=== PATIENT | male | born 1985 | race Caucasian/White ===

== ENCOUNTER 2021-08-12 13:58 | Emergency (ER) | payer SELFPAY ==
[2021-08-12 14:06] VITALS: BP 180/103; PULSE 78; RESP 14; TEMP 37.2; O2SAT 100; BMI 21.7
[2021-08-12 15:30] VITALS: BP 132/73; PULSE 74; TEMP 37.2; O2SAT 99
--- NOTE | 2021-08-12 15:44 | ED_ITS ---
HPI - Extremity Problem General Chief complaint: Extremity Problem,Nontraumatic Stated complaint: Cyst on knee possibly infected Time Seen by Provider: 08/12/21 15:43 Source: patient Mode of arrival: Ambulatory History of Present Illness HPI Narrative: Patient is a 35-year-old male. He is here for evaluation of what he states is a cyst that is enlarging and becoming more painful on the outside of his left knee. He states that he had a cyst on this area several years ago. He had surgery and had a removed. Had no issues until just recently when he started noticing the area swelling again. Is now becoming very tender to palpation. Potentially some subjective fevers at home but no definitive/objective fever noted. Denies any specific trauma. Related Data Home Medications Medication Instructions Recorded Confirmed No Known Home Medications 08/12/21 08/12/21 Allergies Allergy/AdvReac Type Severity Reaction Status Date / Time No Known Drug Allergies Allergy Verified 08/12/21 14:11 Review of Systems Constitutional Constitutional: Reports as per HPI and Reports system reviewed and no additional complaints, except as documented Musculoskeletal Musculoskeletal: Reports system reviewed and no additional complaints, except as documented and Reports as per HPI Integumentary/Breasts Skin/Breast: Reports system reviewed and no additional complaints, except as documented and Reports as per HPI Neurologic Neurologic: Reports system reviewed and no additional complaints, except as documented Hematologic/Lymphatic On Anticoagulants: No Patient History Medical History Patient denies medical problems Social History Smoking Status: Never smoker Smoking Status: Never smoker alcohol intake frequency: 0-2 drinks per day Substance Use Type: marijuana Exam Initial Vital Signs Initial Vital Signs: Vital Signs Temperature 98.9 F 08/12/21 14:06 Pulse Rate 78 08/12/21 14:06 Respiratory Rate 14 08/12/21 14:06 Blood Pressure 180/103 H 08/12/21 14:06 Pulse Oximetry 100 08/12/21 14:06 Resp Auscultation: clear to auscultation bilaterally Cardio Rate: regular rate Skin Other: Patient has a swelling on the lateral aspect of his left knee. Approximately 3 cm x 2 cm. It does appear to be fluid-filled. Not draining. Very slight amount of erythema surrounding the area. It is very tender to touch. Neuro General: patient alert, patient awake, patient oriented x3 and moves all extremities Extrem Other: Patient can flex and extend the left knee. Discomfort over the swelling of the left knee. Course Vital Signs Vital signs: Vital Signs - 8 hr 08/12/21 14:06 08/12/21 15:30 Temperature 98.9 F 98.9 F Pulse Rate 78 74 Respiratory Rate 14 Blood Pressure 180/103 H 132/73 Pulse Oximetry 100 99 MDM - Extremity (Nontraumatic) MDM Narrative Medical decision making narrative: Patient's issue that brought him to the emergency department today is either an abscess or a cyst. He states that he has had a cyst in the past that has been surgically removed. I informed him that unfortunately cyst can return despite the surgical intervention that he previously had. We discussed the potential that this is also a abscess. I did not perform an ultrasound because it is obviously fluid filled. Does have some surrounding erythema. Some concern about an infection however this could also b e reactionary because of the cyst. There is some crusting over the area. Had a long discussion regarding his symptoms. We discussed options to include incision and drainage and needle aspiration. Informed him that at this was an abscess this would treat the issue in that it would go away. If it was a cyst it would most likely return. Unfortunately unless we either aspirated or perform incision and drainage I cannot be 100% sure whether not it was an abscess or a cyst. We discussed the risks of performing the procedure. The risks of not performing the procedure. The potential that the infection would worsen. After this discussion the patient would like to hold on any intervention here in the ER. No radiologic studies warranted of the emergency department. With with the skin looks around the area I will not start him on antibiotics without performing a incision and drainage as this potentially is a cyst and I feel that putting him on antibiotics is not best course of action w ithout further intervention here in the ER. He was given information of follow- up with general surgery to see about having the cyst removed. He was given strict return precautions and follow-up instructions. He expressed understanding and agreement. Discharge Plan Departure Patient Disposition: Home Clinical Impression: Mass of left knee Activity Restrictions/Additional Instructions: Like we discussed I do have some concern that this is potentially a abscess (a pocket of infection) or potentially an infected cyst however after discussion you would like to hold on any incision and drainage for now. I do recommend that you contact the [place] surgeon group at [phone] for a follow-up. If you start to develop fevers or if redness develops or it becomes more painful or becomes larger I do recommend that you return to the emergency department for further treatment. Prescriptions: No Action No Known Home Medications RF: 0 Referrals: Jonathan Robles MD [Primary Care Provider] - Dave Martin MD [Physician] -
--- NOTE | 2021-08-12 15:50 | PC.NURSE ---
Addendum entered by Daisy Delarosa R.N. 08/12/21 16:26: Abcess on left medial, not right lateral. Original Note: Pt has right lateral knee abcess, states he had a cyst removed approximately 11 years ago. Red, round abcess assessed, pt states pain is worse with palpitation. States it has been worsening over the past 2 weeks with notable growth in the past 2 days.
== END 2021-08-12 16:30 | disposition home or self-care (01) ==
PROVIDERS: Emergency Provider Emergency Medicine; PCP Family Medicine
DX: R22.42 Localized swelling, mass and lump, left lower limb (principal)
CPT/HCPCS: 99281

== ENCOUNTER → 2021-08-13 12:36 | Outpatient (CLI) | payer SELFPAY ==
--- NOTE | 2021-08-13 12:39 | DI.RAD.S_ITS ---
PROCEDURE: XR KNEE LT 3V INDICATIONS: left knee drainage TECHNIQUE: 3 views of the knee were acquired. COMPARISON: None. FINDINGS: Bones: No fractures or dislocations. No suspicious bony lesions. Soft tissues: No joint effusion. No suspicious soft tissue calcifications. IMPRESSION: No acute osseous abnormality. Dictated by: Johnny Anton M.D. on 08/13/2021 at 12:59 Approved by: Johnny Anton M.D. on 08/13/2021 at 13:00
[2021-08-13 13:51] LABS: Add Manual Diff / Slide Review NO; Basophils Absolute Auto 0 /uL (0-100); Basophils Percent Auto 0.8 % (0-2); Eosinophils Absolute Auto 0 /uL (0-450); Eosinophils Percent Auto 0.4 % (2-4); Hematocrit 44.5 % (41-53); Hemoglobin 15.1 g/dL (13.5-17.5); Lymphocytes Absolute Auto 1600 /uL (1100-4500); Lymphocytes Percent Auto 25.2 % (25-40); Mean Corpuscular Hemoglobin 29.7 PG (26-34); Mean Corpuscular Volume 87.4 fL (80-100); Monocytes Absolute Auto 500 /uL (0-900); Monocytes Percent Auto 8.2 % (3-14); Neutrophils Absolute Auto 4100 /uL (1500-7000); Neutrophils Percent Auto 65.4 % (50-75); Platelet Count 225 X10^3/uL (150-400); Red Blood Cell Count 5.09 X10^6/uL (4.5-5.9); Red Cell Distribution Width 12.3 % (11.6-14.8); White Blood Cell Count 6.3 X10^3/uL (4.5-11.0)
[2021-08-13 14:10] LABS: Erythrocyte Sedimentation Rate 3 MM/HR (0-15)
[2021-08-13 14:14] LABS: Alanine Aminotransferase 21 IU/L (<50); Albumin 4.4 g/dL (3.5-5.0); Albumin Globulin Ratio 1.6 (1.0-2.8); Alkaline Phosphatase 72 U/L (38-126); Aspartate Aminotransferase 21 IU/L (17-59); BUN Creatinine Ratio 20.6 (6-22); Bilirubin Total 0.4 mg/dL (0.2-1.3); Blood Urea Nitrogen 14 mg/dL (9-20); C-Reactive Protein Quant 0.5 mg/dL (<1.0); Calcium 9.3 mg/dL (8.4-10.2); Carbon Dioxide 27 mmol/L (22-32); Chloride 102 mmol/L (98-107); Estimated Glomerular Filt Rate > 60.0 mL/min (>60); Globulin 2.7 g/dL (1.7-4.1); Glucose 95 mg/dL (70-100); HEMOLYSIS < 15 (0-50); Potassium 4.5 mmol/L (3.4-5.1); Sodium 138 mmol/L (137-145); Total Protein 7.1 g/dL (6.3-8.2)
== END ==
PROVIDERS: Referring Provider Surgery; Visit Provider Surgery
DX: R22.42 Localized swelling, mass and lump, left lower limb (principal)
CPT/HCPCS: 36415; 73562; 80053; 85025; 85651; 86140

== ENCOUNTER 2021-08-16 13:46 | Day surgery (SDC) | payer OTHER, SELFPAY ==
[2021-08-15 11:17] VITALS: BMI 23.0
--- NOTE | 2021-08-16 | PATH_ITS ---
[facility] Accession Number: [id number] . 01 Material submitted: . knee - SUPERFICIAL MASS LEFT KNEE . 01 Diagnosis: Left Knee, Excision: Fragments of keratin debris; see note. . Note: The findings are not entirely specific given the lack of epidermis, dermis or cyst wall present in the sample. Nevertheless, the findings may represent the contents of a keratinous cyst (such as an epidermal inclusion cyst) or dilated hair follicle. There is no evidence of malignancy identified in section examined. Clinical correlation is suggested. MRV 08/19/2021 1410 Local . 01 Electronically signed: . Jose Armando Jeff MD, Dermatopathologist NPI- [id number] . 01 Gross description: . SUPERFICIAL MASS LEFT KNEE: Received in formalin are multiple fragment(s) of woodall, soft tissue measuring 2.6 x 1.0 x 0.3 cm in aggregate which are inked and submitted entirely in 1 cassette(s) /QBJ 08/17/2021 0609 Local . 01 Pathologist provided ICD-10: R23.9 . 01 CPT . 928560 Performed at: 01 [facility] [address] [place] [address] [id number] MD Tanner Du MD Phone: [phone]
[2021-08-16 14:09] LABS: COVID19 -Nasal RAPID Negative (Negative)
--- NOTE | 2021-08-16 15:04 | PM.PREOP ---
Pre-operative Note COVID-19 COVID-19 status: Negative Interval Note History & Physical reviewed/Exam performed by Physician: Yes Changes to H&P: No
[2021-08-16 15:11] VITALS: BP 145/78; PULSE 72; RESP 18; TEMP 36.8; O2SAT 99; BMI 23.0
[2021-08-16] MEDS: LACTATED RINGERS 1,000 ML 42 ML IV (15:28)
--- NOTE | 2021-08-16 16:50 | SUR.OPER ---
Supine on padded OR bed, head on pillow, arms secured on padded arm boards at <90 degrees abduction, legs uncrossed, safety belt at waist, tape over blanket over lower right leg, left leg draped free .
[2021-08-16] MEDS: BUPIVACAINE 0.25% (PF) VIAL 30 ML INJ (16:58)
[2021-08-16] MEDS: EPINEPHrine 1 MG/ML 0.15 MG INJ (17:00)
[2021-08-16] MEDS: CEFAZOLIN 1 GM VIAL 2 GM IV (17:06)
[2021-08-16 17:30] VITALS: BP 131/80; PULSE 73; RESP 16; TEMP 37.4; O2SAT 100
--- NOTE | 2021-08-16 17:30 | PM.OP.1 ---
Operative Date/Time/Diagnoses Date of procedure: 08/16/21 Time of procedure: 17:30 Pre-op diagnosis: Ganglion lower leg Draining sinus leg Post-op diagnosis: same (Cyst lower leg with draining sinus) Procedure & Clinicians Procedure: Debridement subcutaneous tissue 20 sq cm CPT code 68989 Excision cyst lower extremity left CPT code 07089 Same procedure as scheduled: Yes Indications: Patient is a 35-year-old male that has a mass at the lateral aspect of his left knee this is increased in size and moved in position and then began draining 2 areas in the skin over the last 48 hours the area is red and tender. He was seen in the [facility] emergency room and sent to the general surgery clinic. Orthopedic surgery was called from the general surgery clinic or the draining wound. He was indicated for surgery to debride the wound and excised the underlying mass. Does have a history of a cyst excised several years ago he was told this was an inclusion cyst. The risks and benefits of the procedure have been discussed with the patient even opportunity to ask questions. The risks of surgery include but are not limited to infection, malunion, recurrence, damage to nerves and blood vessels, posttraumatic arthritis, DVT, PE, cardiopulmonary complications and . Consent was signed in the office. Surgeon: Gerri Ivey Click Yes if Unassisted: Yes Anesthesia Type: Sedation and Local Operative Notes Findings: Approximately 1 x 2 cm cystic mass partially ruptured and draining out to sinuses on the lateral aspect of the left knee. Indurated surrounding tissue. Malodor. White cheesy the cyst contents similar to both inclusion cyst and gout. No purulence noted. No tracking deep to the retinaculum. Closure Type: primary Specimen(s): other (Tissue sent for microbiology and pathology) Estimated Blood Loss (mL): 5 Blood products transfused: none Tourniquet time (min): 12 Procedure in detail: Patient was seen in the preoperative area the site of surgery marked informed consent confirmed. He was brought back to the operating room by the anesthesia team. He was positioned supine on the operative table. A light anesthetic was administered. The left lower extremities prepped and draped in the standard sterile fashion. Well-padded thigh tourniquet was placed. All bony prominences well padded. The left leg was cleansed then 10 cc of saline was then infiltrated locally. The left lower extremities then prepped and draped in the standard sterile fashion. A formal time-out procedure was performed confirming the patient's side and site of surgery and presence of informed consent. Antibiotics were held for culture. The left leg was then held for gravity exsanguination the tourniquet was raised to 250 mmHg and stayed there for 12 minutes. The 2 lateral draining sinuses were ellipsed sized out revealing the underlying cyst this was ruptured and there were white cheesy contents the cyst wall was then excised. Also approximately half a cm above the area of the excision there was a pin sized hole in the skin communicating directly to the area the cyst this was then excised to incorporate into the wound excision as this was thought to be passed into the cyst contents. Tissue was sent for microbiology and pathology. There was no intra-articular extension. Retinaculum was intact. The wound was thoroughly debrided. The wound was then washed with 3 L of saline through cysto tubing. Gloves were changed. Clean drape was placed. Clean instruments were then used to close the incision with a 2-0 PDS and 3-0 nylon suture. Dressing was placed with Xeroform and an Aquacel. The patient was woken from anesthesia and taken to recovery area in good condition. There no immediate complications from this procedure. All counts were correct. Complications: none Post-operative Condition: stable Disposition: PACU Plan for aftercare: Weightbear as tolerated. Keep dressing in place. Follow-up in 2 weeks for suture removal. Will follow up path at 1st postoperative appointment.
[2021-08-16 17:47] VITALS: BP 139/79; PULSE 75; RESP 16; TEMP 36.6; O2SAT 98
== END 2021-08-16 17:50 | disposition home or self-care (01) ==
PROVIDERS: Referring Provider Orthopaedic Surgery Foot and Ankle Surgery; Visit Provider Orthopaedic Surgery Foot and Ankle Surgery
PROC: (CPT 11042; principal; 2021-08-16 14:30)
DX: L98.8 Other specified disorders of the skin and subcutaneous tissue (principal); Z20.822 Contact with and (suspected) exposure to COVID-19
CPT/HCPCS: 11042; 87070; 87075; 87205; 87635; J0171; J0690; J1100; J1885; J2250; J2405; J2704; J3010